=== PATIENT | male | born 1950 | race Caucasian/White ===

== ENCOUNTER 2020-02-17 17:23 | Emergency (ER) | payer OTHER, MEDICARE ==
[~2020-02-17] VITALS: Ht 167.6 cm; Wt 56.8 kg
[2020-02-17 18:11] LABS: BASOPHILS % (AUTO) 0.4 % (0-1); EOSINOPHILS # (AUTO) 0.1 X10'3 (0-0.9); EOSINOPHILS % (AUTO) 1.3 % (0-6); HEMOGLOBIN 15.7 g/dl (14.0-17.9); LYMPHOCYTES # (AUTO) 2.6 X10'3 (1.1-4.8); LYMPHOCYTES % (AUTO) 30.2 % (21-51); MEAN CORPUSCULAR HEMOGLOBIN 30.8 PG (27.0-31.0); MEAN CORPUSCULAR HGB CONC 34.8 g/dL (33.0-36.5); MEAN CORPUSCULAR VOLUME 88.5 FL (78-98); MEAN PLATELET VOLUME 7.6 FL (7.4-10.4); MONOCYTES # (AUTO) 0.7 X10'3 (0-0.9); MONOCYTES % (AUTO) 8.1 % (2-12); NEUTROPHILS # (AUTO) 5.2 X10'3 (1.8-7.7); PLATELET COUNT 242 X10'3 (140-440); RED BLOOD COUNT 5.09 X10'6 (4.70-6.10); RED CELL DISTRIBUTION WIDTH 12.5 % (11.5-14.5); WHITE BLOOD COUNT 8.7 X10'3 (4.5-11.0)
[2020-02-17 18:35] LABS: ALANINE AMINOTRANSFERASE 23 U/L (12-78); ALBUMIN 4.1 G/DL (3.4-5.0); ALBUMIN/GLOBULIN RATIO 1.5 (1.1-1.5); ALKALINE PHOSPHATASE 81 IU/L (46-116); ANION GAP 9 (8-16); ASPARTATE AMINO TRANSFERASE 20 U/L (10-37); BILIRUBIN,TOTAL 0.5 MG/DL (0.1-1.0); BLOOD UREA NITROGEN 16 MG/DL (7-18); BUN/CREATININE RATIO 13.1 (5.4-32.0); CALCIUM 8.7 MG/DL (8.5-10.1); CHLORIDE 102 MMOL/L (99-107); CREATININE 1.22 MG/DL (0.60-1.10); GLUCOSE 213 MG/DL (70-104); POTASSIUM 4.1 MMOL/L (3.5-5.1); SODIUM 137 MMOL/L (135-145); TOTAL CARBON DIOXIDE 26.1 MMOL/L (24-32); TOTAL PROTEIN 6.9 G/DL (6.4-8.2); eGFR 59 ML/MIN
[2020-02-17 21:35] VITALS: BP 133/76
== END 2020-02-17 21:35 | disposition home or self-care (01) ==
LOC: ER 17:24
DX: R06.09 Other forms of dyspnea (principal); R42 Dizziness and giddiness; R07.89 Other chest pain; R53.83 Other fatigue; Z88.0 Allergy status to penicillin
CPT/HCPCS: 36415; 71045; 80053; 83880; 84484; 85025; 93005; 99285

== ENCOUNTER 2020-02-22 08:06 | Emergency (ER) | payer OTHER, MEDICARE ==
[~2020-02-22] VITALS: Ht 172.7 cm; Wt 65.0 kg
--- NOTE | 2020-02-22 10:19 | NUR ---
Patient is resting comfortably in bed and denies complaints. He gets up to restroom and back to bed without incident.
[2020-02-22 11:26] VITALS: BP 139/70
== END 2020-02-22 11:28 | disposition home or self-care (01) ==
LOC: ER 08:06
DX: T38.3X1A Poisoning by insulin and oral hypoglycemic [antidiabetic] drugs, accidental (unintentional), initial encounter (principal); R07.89 Other chest pain; E11.9 Type 2 diabetes mellitus without complications; Z88.0 Allergy status to penicillin; Y92.89 Other specified places as the place of occurrence of the external cause
CPT/HCPCS: 82948; 93005; 99285

== ENCOUNTER 2020-05-03 06:42 | Emergency (ER) | payer OTHER, MEDICARE ==
[~2020-05-03] VITALS: Ht 167.6 cm; Wt 56.6 kg
[2020-05-03 09:32] VITALS: BP 168/88
== END 2020-05-03 09:34 | disposition home or self-care (01) ==
LOC: ER 06:42
DX: E11.9 Type 2 diabetes mellitus without complications (principal); T38.3X5A Adverse effect of insulin and oral hypoglycemic [antidiabetic] drugs, initial encounter; Z88.0 Allergy status to penicillin; Y92.89 Other specified places as the place of occurrence of the external cause
CPT/HCPCS: 82948; 99283